=== PATIENT | male | born 2000 | race Caucasian/White ===

== ENCOUNTER 2020-05-04 21:45 | Inpatient (IN) | payer MEDICAID ==
[~2020-05-04] VITALS: Ht 182.9 cm; Wt 131.9 kg
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
[2020-05-04 23:50] VITALS: BP 132/69
[2020-05-05] MEDS ORDERED: mag hydrox/Alum hydrox/simeth 30ml oral suspension PO PRN (00:25)
[2020-05-05] MEDS ORDERED: loperamide 2mg capsule PO PRN (00:25)
[2020-05-05] MEDS ORDERED: magnesium hydroxide 30ml (MOM) UD suspension PO PRN (00:25)
[2020-05-05] MEDS ORDERED: acetaminophen 325mg tablet PO PRN ×2 (00:25)
[2020-05-05] MEDS ORDERED: NO HOME MEDS (01:26)
[2020-05-05 08:00] VITALS: BP 108/57
--- NOTE | 2020-05-05 16:44 | NUR ---
NURSING PROGRESS NOTE Legal hold: 5150 Client on involuntary status for DTO Report received from nurse, Charis Bishop RN with use of SBAR Why are they here: 20-year-old male with a history of depression and anxiety presents to the ED for mental health evaluation. Patient went to see his psychiatrist today at a follow-up appointment and was referred to the ER due to some suicidal ideation. He states he has never been in an inpatient psychiatric facility before. He reports some thoughts of self-harm for the past day, denies any outside factors contributing to it. He denies any HI, hallucinations, voices. Denies any alcohol or drug use. History of ADHD. He is not on any medications for his depression currently. Assessment What has happened this shift: Pt up for meals, went to group and spent time asking questions about how the program works here and how long he will be here. S/I, H/I:denies A/VH: denies Sleep:up all shift ADL's:independent Group attendance:yes Were meds taken:None prescribed Any med S/E: N/A Mental Status Exam Appearance:Wearing personal clothing and a mask Eye contact:fair Behavior:Calm and Cooperative Speech: clear, audible Mood: Euthymic Affect: bright Thought process:wanting to know about the program and when he can leave Thought Content: going home Cognition:A/O x3 Insight:fair Judgment: fair Interventions PRN's used:N/A Therapeutic interventions:provided 1:1 assessment, therapeutic communication with active listening, education provided on process of 5150 and treatment while in the hospital. Restraints/seclusion/emergency medication:N/A Justification: Pt came to ER stating he had plans to "jump off a bridge to kill himself." He is in need of a psychiatric evaluation prior to being discharged to prevent further hospitalization or injury.
[2020-05-05 20:00] VITALS: BP 138/71
[2020-05-05] MEDS ORDERED: traZODone 50mg tablet PO ONE (21:00)
[2020-05-05] MEDS ORDERED: METH54TA12 (21:08)
[2020-05-05] MEDS ORDERED: ALBU2.5V13 NEB (21:08)
[2020-05-05] MEDS ORDERED: LORA10TA7 PO (21:08)
[2020-05-05] MEDS ORDERED: ALBU18HF2 IH (21:08)
[2020-05-05] MEDS ORDERED: MONT10TA26 PO (21:08)
[2020-05-05] MEDS ORDERED: BECL10.62 IH (21:08)
[2020-05-05] MEDS: LORazepam 1 MG tablet PO PRN (21:16)
[2020-05-05] MEDS ORDERED: traZODone 50mg tablet PO SCH (22:35)
--- NOTE | 2020-05-06 00:47 | NUR ---
NURSING PROGRESS NOTE Legal hold: 5150 Client on involuntary status for DTO Report received from nurseBrenda RN with use of SBAR Why are they here: 20-year-old male with a history of depression and anxiety presents to the ED for mental health evaluation. Patient went to see his psychiatrist today at a follow-up appointment and was referred to the ER due to some suicidal ideation. He states he has never been in an inpatient psychiatric facility before. He reports some thoughts of self-harm for the past day, denies any outside factors contributing to it. He denies any HI, hallucinations, voices. Denies any alcohol or drug use. History of ADHD. He is not on any medications for his depression currently. Assessment What has happened this shift: Pt was up and in the mendoza at the start of the shift. He was concerned about when he would see a Dr. Pt was seen a little later in the shift. Pt reported he feels good being here and felt a little anxious because this is not home. He reported difficulty sleeping. Provider was called and a one time order given. Prn Ativan and Trazodone given for anxiety and sleep. S/I, H/I:denies A/VH: denies Sleep:up all shift ADL's:independent Group attendance:yes Were meds taken:None prescribed Any med S/E: N/A Mental Status Exam Appearance:Wearing personal clothing and a mask Eye contact:fair Behavior:Calm and Cooperative Speech: clear, audible Mood: Euthymic Affect: bright Thought process:wanting to know about the program and when he can leave Thought Content: going home Cognition:A/O x3 Insight:fair Judgment: fair Interventions PRN's used:Ativan,Trazodone Therapeutic interventions:provided 1:1 assessment, therapeutic communication with active listening, education provided on process of 5150 and treatment while in the hospital. Restraints/seclusion/emergency medication:N/A Justification: Pt came to ER stating he had plans to "jump off a bridge to kill himself." He is in need of a psychiatric evaluation prior to being discharged to prevent further hospitalization or injury.
[2020-05-06] MEDS ORDERED: albuterol 2.5 MG/3 ML nebule NEB PRN (06:20)
[2020-05-06 08:00] VITALS: BP 113/60
[2020-05-06] MEDS: albuterol 2.5 MG/3 ML nebule NEB SCH ×3 (08:00→20:33)
[2020-05-06] MEDS: loratadine 10mg tablet PO SCH (08:17)
[2020-05-06] MEDS: buPROPion SR 150mg tablet PO SCH (08:17)
[2020-05-06 09:00] LABS: HEMOGLOBIN A1C 5.4 % (4.5-6.2)
[2020-05-06] MEDS: budesonide 0.5mg/2ml UD nebule IH SCH ×2 (09:00→20:33)
[2020-05-06 09:07] LABS: CHOL/HDL RATIO 5.5 (0.00-4.99); CHOLESTEROL 159 MG/DL (0-200); HDL CHOLESTEROL 29 MG/DL (35-60); LDL CHOLESTEROL 112 MG/DL (50-100); TRIGLYCERIDES 159 MG/DL (20-135)
[2020-05-06] MEDS: methylphenidate 5mg tablet PO SCH ×2 (10:30→13:14)
--- NOTE | 2020-05-06 14:14 | NUR ---
NURSING PROGRESS NOTE Legal hold: 5150 Client on involuntary status for DTO Report received from nurse, Charis Bishop RN with use of SBAR Why are they here: 20-year-old male with a history of depression and anxiety presents to the ED for mental health evaluation. Patient went to see his psychiatrist today at a follow-up appointment and was referred to the ER due to some suicidal ideation. He states he has never been in an inpatient psychiatric facility before. He reports some thoughts of self-harm for the past day, denies any outside factors contributing to it. He denies any HI, hallucinations, voices. Denies any alcohol or drug use. History of ADHD. He is not on any medications for his depression currently. Assessment What has happened this shift: Pt has been placed on Wellbutrin and Ritalin. He is compliant with his treatment. He spent the day out among his peers, went to groups and did some exercising on the bicycle. S/I, H/I: Denies A/VH: Denies Sleep: Up all shift ADL's: Independent Group attendance: Yes, outside Were Meds taken: Yes Any med S/E: N/A Mental Status Exam Appearance: Wears personal clothing w/mask Eye contact: Fair Behavior: Calm, cooperative Speech: clear, audible Mood: Euthymic Affect: Bright Thought process: Linear Thought Content: he wants to leave Cognition:A/O x3 Insight:fair Judgment: fair Interventions PRN's used:N/A Therapeutic interventions:provided 1:1 assessment, therapeutic communication with active listening, medication administration/education/monitoring, q 15min safety checks. Restraints/seclusion/emergency medication:N/A Justification: Pt came to ER stating he had plans to "jump off a bridge to kill himself." He is in need of a psychiatric evaluation prior to being discharged to prevent further hospitalization or injury.
[2020-05-06 20:26] VITALS: BP 118/56
[2020-05-06] MEDS ORDERED: traZODone 50mg tablet PO SCH (21:00)
[2020-05-06] MEDS ORDERED: montelukast 10mg tablet PO SCH (21:00)
[2020-05-06] MEDS: LORazepam 1 MG tablet PO PRN (23:38)
--- NOTE | 2020-05-06 23:48 | NUR ---
NURSING PROGRESS NOTE Legal hold: 5150 Client on involuntary status for DTO Report received from nurseBrenda RN with use of SBAR Why are they here: 20-year-old male with a history of depression and anxiety presents to the ED for mental health evaluation. Patient went to see his psychiatrist today at a follow-up appointment and was referred to the ER due to some suicidal ideation. He states he has never been in an inpatient psychiatric facility before. He reports some thoughts of self-harm for the past day, denies any outside factors contributing to it. He denies any HI, hallucinations, voices. Denies any alcohol or drug use. History of ADHD. He is not on any medications for his depression currently. Assessment What has happened this shift: Pt was in bed at shift change sleeping. Awoke pt for meds and offerd snack that he slept thru. Pt denies SI/HI AH/VH at this time. Pt c/o difficulty going back to sleep Prn Ativan given with little help. S/I, H/I: Denies A/VH: Denies Sleep: Up all shift ADL's: Independent Group attendance: Yes, outside Were Meds taken: Yes Any med S/E: N/A Mental Status Exam Appearance: Wears personal clothing w/mask Eye contact: Fair Behavior: Calm, cooperative Speech: clear, audible Mood: Euthymic Affect: Bright Thought process: Linear Thought Content: he wants to leave Cognition:A/O x3 Insight:fair Judgment: fair Interventions PRN's used:Ativan Therapeutic interventions:provided 1:1 assessment, therapeutic communication with active listening, medication administration/education/monitoring, q 15min safety checks. Restraints/seclusion/emergency medication:N/A Justification: Pt came to ER stating he had plans to "jump off a bridge to kill himself." He is in need of a psychiatric evaluation prior to being discharged to prevent further hospitalization or injury.
[2020-05-07 07:41] VITALS: BP 124/61
[2020-05-07] MEDS: loratadine 10mg tablet PO SCH (07:42)
[2020-05-07] MEDS: buPROPion SR 150mg tablet PO SCH (07:42)
[2020-05-07] MEDS: budesonide 0.5mg/2ml UD nebule IH SCH (08:20)
[2020-05-07] MEDS: albuterol 2.5 MG/3 ML nebule NEB SCH (08:20)
[2020-05-07] MEDS: methylphenidate 5mg tablet PO SCH ×2 (08:50→12:02)
[2020-05-07] MEDS ORDERED: TRAZ-251 PO (13:19)
[2020-05-07] MEDS ORDERED: METH-350 PO (13:19)
[2020-05-07] MEDS ORDERED: BUPR-72 PO (13:19)
--- NOTE | 2020-05-07 14:03 | NUR ---
DISCHARGE NOTE Legal hold: 5150 Client on involuntary status for DTO Report received from nurse, Charis Bishop RN with use of SBAR Why are they here: depression and anxiety Patient went to see his psychiatrist at a follow-up appointment and was referred to the ER due to suicidal ideation. He reports inpt hospitalization in the past. He reports some thoughts of self-harm for the past day, denies any outside factors contributing to it. History of ADHD. He is not on any medications for his depression currently. Pt was started on medications while here. Provided education at discharge to both his medications and to mental health diagnosis. Pt acknowledges understanding and commits to follow up with [facility] and to continue to take medications as prescribed. Mental Status Exam at discharge. Appearance: Wears personal clothing w/mask Eye contact: Fair Behavior: Calm, cooperative Speech: clear, audible Mood: Euthymic Affect: Bright Thought process: Linear Thought Content: He wants to leave Cognition:A/O x3 Insight:fair Judgment: fair Interventions PRN's used:N/A Therapeutic interventions:provided 1:1 assessment, therapeutic communication with active listening, medication administration/education/monitoring, q 15min safety checks. He is a nonsmoker and declines smoking cessation resources and/or referrals. All personal belongings returned to him and inventory list signed and dates w/Carlos, NA Pt to follow up with [facility]
== END 2020-05-07 14:03 | disposition short-term general hospital (02) | DRG 751 ==
LOC: ADULT MH 21:45
PROVIDERS: ADMIT Psychiatry & Neurology Psychiatry; ATTEND Psychiatry & Neurology Psychiatry
DX: F32.1 Major depressive disorder, single episode, moderate (principal); R45.851 Suicidal ideations; Z81.3 Family history of other psychoactive substance abuse and dependence; J45.909 Unspecified asthma, uncomplicated; F90.2 Attention-deficit hyperactivity disorder, combined type; F81.9 Developmental disorder of scholastic skills, unspecified; F41.9 Anxiety disorder, unspecified
CPT/HCPCS: 36415; 80061; 83036; 87081; 94640; 94760; J7626